=== PATIENT | female | born 1970 | race Caucasian/White ===

== ENCOUNTER 2023-07-01 10:34 | Emergency (ER) | payer MEDICAID ==
--- NOTE | 2023-07-01 11:07 | ED ---
Upper Extremity HPI - General Chief Complaint: Extremity Injury, Upper Stated Complaint: Swollen finger Time Seen by Provider: 07/01/23 10:50 Source: patient, RN notes reviewed Mode of arrival: ambulatory Limitations: no limitations - History of Present Illness Initial Comments: This is a 53-year-old female presents emergency department chief complaint of right index finger swelling and pain. Dates that she was outside gardening yesterday when a piece of mulch positioned inside of her index finger. Digits that she was able to remove a piece of mulch. She states that she woke up this morning she had swelling and felt a "heartbeat "in her finger. She denies feelings of nausea, chills, body aches, fatigue. Unaware of when last tetanus vaccination was. - Related Data Previous Rx's Medication Instructions Recorded Cephalexin [Keflex] 500 mg PO Q6HR #40 cap 07/01/23 Allergies Allergy/AdvReac Type Severity Reaction Status Date / Time morphine Allergy Rash/Hives Verified 07/01/23 10:39 Review of Systems ROS Statement: Those systems with pertinent positive or pertinent negative responses have been documented in the HPI. ROS Other: All systems not noted in ROS Statement are negative. Past Medical History Past Medical History: No Reported History History of Any Multi-Drug Resistant Organisms: None Reported Past Surgical History: Orthopedic Surgery Past Psychological History: No Psychological Hx Reported Smoking Status: Never smoker Past Alcohol Use History: Occasional Past Drug Use History: None Reported General Exam Limitations: no limitations General appearance: alert, in no apparent distress Head exam: Present: atraumatic, normocephalic, normal inspection Eye exam: Present: normal appearance, PERRL, EOMI. Absent: scleral icterus, conjunctival injection, periorbital swelling ENT exam: Present: normal exam, mucous membranes moist Neck exam: Present: normal inspection. Absent: tenderness, meningismus, lymphadenopathy Respiratory exam: Present: normal lung sounds bilaterally. Absent: respiratory distress, wheezes, rales, rhonchi, stridor Cardiovascular Exam: Present: regular rate, normal rhythm, normal heart sounds. Absent: systolic murmur, diastolic murmur, rubs, gallop, clicks GI/Abdominal exam: Present: soft, normal bowel sounds. Absent: distended, tenderness, guarding, rebound, rigid Right Hand Wrist exam: Present: tenderness, swelling, erythema, other (5 mm ulceration of the mid second phalynx with erythma spreading distally into the metacarpal phalangeal joint). Absent: full ROM (unable to complete full active flexion of second digit), abrasion, crepitus Vascular: Present: normal capillary refill. Absent: vascular compromise Back exam: Present: normal inspection Neurological exam: Present: alert, oriented X3, CN II-XII intact Psychiatric exam: Present: normal affect, normal mood Skin exam: Present: warm, dry, intact, normal color. Absent: rash Course Vital Signs 07/01/23 07/01/23 10:36 11:50 Temperature 98 F 98 F Pulse Rate 101 H 90 Respiratory 20 18 Rate Blood Pressure 128/83 127/79 O2 Sat by Pulse 98 98 Oximetry Medical Decision Making - Medical Decision Making Was pt. sent in by a medical professional or institution (, PA, ANIMAL LABORATORY TECHNICIAN, urgent care, hospital, or [facility]...) When possible be specific @ -No Did you speak to anyone other than the patient for history (EMS, parent, family, police, friend...)? What history was obtained from this source @ -No Did you review nursing and triage notes (agree or disagree)? Why? @ -I reviewed and agree with nursing and triage notes Were old charts reviewed (outside hosp., previous admission, EMS record, old EKG, old radiological studies, urgent care reports/EKG's, [facility] records)? Report findings @ -No old charts were reviewed Differential Diagnosis (chest pain, altered mental status, abdominal pain women, abdominal pain men, vaginal bleeding, weakness, fever, dyspnea, syncope, headache, dizziness, GI bleed, back pain, seizure, CVA, palpatations, mental health, musculoskeletal)? @ -Soft tissue foreign body, cellulitis, this list is not all inclusive EKG interpreted by me (3pts min.). @ -none X-rays interpreted by me (1pt min.). @ -xray of the right finger Soft tissue swelling with no acute osseous abnormality, no radiopaque foreign bodies evident CT interpreted by me (1pt min.). @ -None done U/S interpreted by me (1pt. min.). @ -None done What testing was considered but not performed or refused? (CT, X-rays, U/S, labs)? Why? @ -None What meds were considered but not given or refused? Why? @ -None Did you discuss the management of the patient with other professionals (professionals i.e. , PA, ANIMAL LABORATORY TECHNICIAN, lab, RT, psych nurse, social work professor, white washer piler, teacher, property and supply officer, case packer and sealer)? Give summary @ -No Was smoking cessation discussed for >3mins.? @ -No Was critical care preformed (if so, how long)? @ -No Were there social determinants of health that impacted care today? How? (Homelessness, low income, unemployed, alcoholism, drug addiction, transportation, low edu. Level, literacy, decrease access to med. care, alf, rehab)? @ -No Was there de-escalation of care discussed even if they declined (Discuss DNR or withdrawal of care, Hospice)? DNR status @ -No What co-morbidities impacted this encounter? (DM, HTN, Smoking, COPD, CAD, Cancer, CVA, ARF, Chemo, Hep., AIDS, mental health diagnosis, sleep apnea, morbid obesity)? @ -None Was patient admitted / discharged? Hospital course, mention meds given and route, prescriptions, significant lab abnormalities, going to OR and other pertinent info. @ -Discharge. 53-year-old female chief complaint of potential foreign body in her right finger in addition to erythema and edema. On examination the patient's right second digit is found to be erythematous and she is unable to complete full flexion of the finger due to swelling and pain. There is no overt flexion of the finger no pain along the tendon therefore no concern for flexor tenosynovitis. X-ray nonconcerning for foreign body within the soft tissue. Area was cleansed with chlorhexidine and wrapped. Patient discharged home with oral antibiotics. Strict return parameters discussed with the patient. She is in agreement with the plan. Recommend follow-up with primary care provider next week for further evaluation of wound. Case was discussed with Dr. Rivera Undiagnosed new problem with uncertain prognosis? @ -No Drug Therapy requiring intensive monitoring for toxicity (Heparin, Nitro, Insulin, Cardizem)? @ -No Were any procedures done? @ -No Diagnosis/symptom? @ -Cellulitis, history of foreign body in soft tissue Acute, or Chronic, or Acute on Chronic? @ -acute Uncomplicated (without systemic symptoms) or Complicated (systemic symptoms)? @ -uncmplicated Side effects of treatment? @ -No Exacerbation, Progression, or Severe Exacerbation? @ -No Poses a threat to life or bodily function? How? (Chest pain, [place], [place], pneumonia, PE, COPD, DKA, ARF, appy, cholecystitis, CVA, Diverticulitis, Homicidal, Suicidal, threat to staff... and all critical care pts) @ -No Disposition Clinical Impression: Cellulitis of finger of right hand Narrative: Please return to the Emergency Department if symptoms worsen or any other concerns. Monitor for signs of: Finger held in slight flexion, swelling of the right second digit and tenderness along the palmar surface of the second digit and severe pain with movement of the digit. Complete full course of antibiotics. Disposition: HOME SELF-CARE Condition: Good Instructions (If sedation given, give patient instructions): Cellulitis (ED) Prescriptions: Cephalexin [Keflex] 500 mg PO Q6HR #40 cap Is patient prescribed a controlled substance at d/c from ED?: No Referrals: Hanh Ceron MD [Primary Care Provider] - 1-2 days Time of Disposition: 11:42
[2023-07-01 11:08] VITALS: TEMP 98
[2023-07-01] MEDS: LIDOCAINE 1% INJ 10MG/ML (20 ML MDV) SQ ONE (11:08)
[2023-07-01] MEDS: DIPH,PERTUS(ACELL)TETVAC-LF 0.5 ML VIAL IM ONE (11:25)
--- NOTE | 2023-07-01 11:27 | XR ---
EXAMINATION TYPE: XR finger RT DATE OF EXAM: 07/01/2023 COMPARISON: None HISTORY: Pain and swelling TECHNIQUE: Three-view right index finger FINDINGS: No acute fracture or dislocation is evident. Diffuse mild soft tissue swelling appears to b e present. No radiopaque foreign bodies are evident. Joint spaces are preserved. Follow up exams can be performed 7-10 days from acute trauma for continued pain. IMPRESSION: 1. Soft tissue swelling. 2. No acute osseous abnormality.
[2023-07-01 11:53] VITALS: BP 127/79; PULSE 90; RESP 18
== END 2023-07-01 12:00 | disposition home or self-care (01) ==
LOC: EC 10:34
DX: L03.011 Cellulitis of right finger (principal); Z88.5 Allergy status to narcotic agent; Z23 Encounter for immunization
CPT/HCPCS: 90471; 90715; 99283

== ENCOUNTER 2023-07-02 08:36 | Observation (INO) | payer MEDICAID ==
[2023-07-02] MEDS ORDERED: VANCOMYCIN IV PER PHARMACY 1 EACH MISC MISCELLANE PRN (09:10)
--- NOTE | 2023-07-02 09:10 | ED ---
Upper Extremity HPI - General Chief Complaint: Extremity Injury, Upper Stated Complaint: R Finger Swelling Time Seen by Provider: 07/02/23 08:40 Source: patient Mode of arrival: ambulatory Limitations: no limitations - History of Present Illness Initial Comments: 53-year-old female who presents emergency department with infection of the right index finger. States that she was working in the garden on . She was wearing gloves but still accidentally got a piece of splinter in her finger. It was from the mulch that she was working with. States she was able to soak her finger and get the splinter out yesterday morning. She came into the emergency department where an x-ray was performed and patient was initiated on Keflex. Presents today that she woke up with a very swollen digit that is now starting to have hemorrhagic blisters. She is right-hand dominant. States that the pain is tracking up to her hand and has tenderness in her palm. She denies any fevers. No other alleviating, precipitating or modifying factors - Related Data Home Medications Medication Instructions Recorded Confirmed ALPRAZolam [Xanax] 0.5 - 1 mg PO HS PRN 07/02/23 07/02/23 Acetaminophen Tab [Tylenol Tab] 500 - 1,000 mg PO Q6HR PRN 07/02/23 07/02/23 Doxylamine Succinate [Unisom] 25 mg PO HS PRN 07/02/23 07/02/23 FLUoxetine HCL [PROzac] 10 mg PO DAILY 07/02/23 07/02/23 Vitamin B-12 (Unknown Strength) 1 dose PO DAILY 07/02/23 07/02/23 Gummies Vitamin C (Unknown Strength) 1 dose PO DAILY 07/02/23 07/02/23 Gummies Previous Rx's Medication Instructions Recorded Cephalexin [Keflex] 500 mg PO Q6HR #40 cap 07/01/23 Allergies Allergy/AdvReac Type Severity Reaction Status Date / Time morphine Allergy Rash/Hives Verified 07/02/23 10:20 Review of Systems ROS Statement: Those systems with pertinent positive or pertinent negative responses have been documented in the HPI. ROS Other: All systems not noted in ROS Statement are negative. Past Medical History Past Medical History: No Reported History History of Any Multi-Drug Resistant Organisms: None Reported Past Surgical History: Orthopedic Surgery Past Psychological History: No Psychological Hx Reported Smoking Status: Never smoker Past Alcohol Use History: Occasional Past Drug Use History: None Reported General Exam Limitations: no limitations General appearance: alert, in no apparent distress Head exam: Present: atraumatic, normocephalic, normal inspection Eye exam: Present: normal appearance, PERRL, EOMI. Absent: scleral icterus, conjunctival injection, periorbital swelling ENT exam: Present: normal exam, mucous membranes moist Neck exam: Present: normal inspection. Absent: tenderness, meningismus, lymphadenopathy Respiratory exam: Present: normal lung sounds bilaterally. Absent: respiratory distress, wheezes, rales, rhonchi, stridor Cardiovascular Exam: Present: regular rate, normal rhythm, normal heart sounds. Absent: systolic murmur, diastolic murmur, rubs, gallop, clicks GI/Abdominal exam: Present: soft, normal bowel sounds. Absent: distended, tenderness, guarding, rebound, rigid Extremities exam: Present: tenderness (With extension of the right index finger. Finger is held in flexion. Full circumferential swelling. Hemorrhagic blisters. Tenderness along the flexor tendon. Erythematous streaking to the hand), normal capillary refill. Absent: pedal edema, joint swelling, calf tenderness Back exam: Present: normal inspection Neurological exam: Present: alert, oriented X3, CN II-XII intact Psychiatric exam: Present: normal affect, normal mood Skin exam: Present: warm, dry, intact, normal color. Absent: rash Course Vital Signs 07/02/23 07/02/23 08:39 10:54 Temperature 97.7 F Pulse Rate 100 86 Respiratory 20 18 Rate Blood Pressure 131/84 144/84 O2 Sat by Pulse 99 96 Oximetry Medical Decision Making - Medical Decision Making Was pt. sent in by a medical professional or institution (, PA, FINANCIAL SERVICES COUNSELOR, urgent care, hospital, or care home...) When possible be specific @ -No Did you speak to anyone other than the patient for history (EMS, parent, family, police, friend...)? What history was obtained from this source @ -No Did you review nursing and triage notes (agree or disagree)? Why? @ -I reviewed and agree with nursing and triage notes Were old charts reviewed (outside hosp., previous admission, EMS record, old EKG, old radiological studies, urgent care reports/EKG's, care home records)? Report findings @ -I reviewed the patient's ED visit from yesterday Differential Diagnosis (chest pain, altered mental status, abdominal pain women, abdominal pain men, vaginal bleeding, weakness, fever, dyspnea, syncope, headache, dizziness, GI bleed, back pain, seizure, CVA, palpatations, mental health, musculoskeletal)? @ -Cellulitis, abscess, flexor tenosynovitis EKG interpreted by me (3pts min.). @ -Not done X-rays interpreted by me (1pt min.). @ -None done CT interpreted by me (1pt min.). @ -None done U/S interpreted by me (1pt. min.). @ -None done What testing was considered but not performed or refused? (CT, X-rays, U/S, labs)? Why? @ -None What meds were considered but not given or refused? Why? @ -None Did you discuss the management of the patient with other professionals (professionals i.e. , PA, FINANCIAL SERVICES COUNSELOR, lab, RT, psych nurse, manager social media, senior attorney, teacher, business enterprise officer, case specialist)? Give summary @ -Spoke with Dr. Edwards for admission Was smoking cessation discussed for >3mins.? @ -No Was critical care preformed (if so, how long)? @ -No Were there social determinants of health that impacted care today? How? (Homelessness, low income, unemployed, alcoholism, drug addiction, transportation, low edu. Level, literacy, decrease access to med. care, alf, rehab)? @ -No Was there de-escalation of care discussed even if they declined (Discuss DNR or withdrawal of care, Hospice)? DNR status @ -No What co-morbidities impacted this encounter? (DM, HTN, Smoking, COPD, CAD, Cancer, CVA, ARF, Chemo, Hep., AIDS, mental health diagnosis, sleep apnea, morbid obesity)? @ -None Was patient admitted / discharged? Hospital course, mention meds given and route, prescriptions, significant lab abnormalities, going to OR and other pertinent info. @ -Upon arrival patient seen and evaluated in room 17. Thorough history and physical exam was performed. Patient has been taking antibiotics however digit is getting markedly worse. IV was established. Laboratory studies are conducted. Patient was initiated on Vanco, Unasyn and Flagyl. Recommended admission due to failed outpatient treatment with concern for flexor tenosynovitis. Spoke with Dr. Edwards. Dr. Christine on consult Undiagnosed new problem with uncertain prognosis? @ -No Drug Therapy requiring intensive monitoring for toxicity (Heparin, Nitro, Insulin, Cardizem)? @ -No Were any procedures done? @ -No Diagnosis/symptom? @ -Acute foreign body right index finger, acute flexor tenosynovitis Acute, or Chronic, or Acute on Chronic? @ -Acute Uncomplicated (without systemic symptoms) or Complicated (systemic symptoms)? @ -Complicated Side effects of treatment? @ -No Exacerbation, Progression, or Severe Exacerbation? @ -No Poses a threat to life or bodily function? How? (Chest pain, [place], [place], pneumonia, PE, COPD, DKA, ARF, appy, cholecystitis, CVA, Diverticulitis, Homicidal, Suicidal, threat to staff... and all critical care pts) @ -Yes as patient has possible deep space infection in her right index finger - Lab Data Result diagrams: 07/03/23 05:49 07/05/23 06:32 Lab Results 07/02/23 07/02/23 07/02/23 Range/Units 09:20 09:20 09:20 WBC 8.9 (3.8-10.6) k/uL RBC 4.40 (3.80-5.40) m/uL Hgb 13.2 (11.4-16.0) gm/dL Hct 40.6 (34.0-46.0) % MCV 92.5 (80.0-100.0) fL MCH 30.1 (25.0-35.0) pg MCHC 32.6 (31.0-37.0) g/dL RDW 12.3 (11.5-15.5) % Plt Count 305 (150-450) k/uL MPV 6.9 Neutrophils % 72 % Lymphocytes % 20 % Monocytes % 5 % Eosinophils % 1 % Basophils % 1 % Neutrophils # 6.4 (1.3-7.7) k/uL Lymphocytes # 1.8 (1.0-4.8) k/uL Monocytes # 0.5 (0-1.0) k/uL Eosinophils # 0.1 (0-0.7) k/uL Basophils # 0.1 (0-0.2) k/uL Sodium 140 (137-145) mmol/L Potassium 3.8 (3.5-5.1) mmol/L Chloride 107 (98-107) mmol/L Carbon Dioxide 28 (22-30) mmol/L Anion Gap 5 mmol/L BUN 13 (7-17) mg/dL Creatinine 0.46 L (0.52-1.04) mg/dL Est GFR (CKD-EPI)AfAm >90 (>60 ml/min/1.73 sqM) Est GFR (CKD-EPI)NonAf >90 (>60 ml/min/1.73 sqM) Glucose 86 (74-99) mg/dL Plasma Lactic Acid Kyle 1.1 (0.7-2.0) mmol/L Calcium 8.6 (8.4-10.2) mg/dL Total Bilirubin 0.6 (0.2-1.3) mg/dL AST 35 (14-36) U/L ALT 24 (4-34) U/L Alkaline Phosphatase 95 (38-126) U/L C-Reactive Protein 15.1 H (<1.0) mg/dL Total Protein 7.0 (6.3-8.2) g/dL Albumin 4.0 (3.5-5.0) g/dL Disposition Clinical Impression: Cellulitis of finger of right hand, Flexor tenosynovitis of finger Disposition: ADMITTED IP TO THIS [facility] Condition: Stable Is patient prescribed a controlled substance at d/c from ED?: No Time of Disposition: 10:08 Decision to Admit Reason: Admit from EC Decision Date: 07/02/23 Decision Time: 10:08
[2023-07-02] MEDS: AMPICILLIN-SULBACTAM 3 GM in SODIUM CHLORIDE 0.9% 100 ML IVPB STA (09:47)
[2023-07-02 09:52] LABS: Basophils # (A) 0.1 k/uL (0-0.2); Basophils % (A) 1 %; Eosinophils # (A) 0.1 k/uL (0-0.7); Eosinophils % (A) 1 %; HCT 40.6 % (34.0-46.0); HGB 13.2 gm/dL (11.4-16.0); Lymphocytes # (A) 1.8 k/uL (1.0-4.8); Lymphocytes % (A) 20 %; MCH 30.1 pg (25.0-35.0); MCHC 32.6 g/dL (31.0-37.0); MCV 92.5 fL (80.0-100.0); Mean Platelet Volume 6.9; Monocytes # (A) 0.5 k/uL (0-1.0); Monocytes % (A) 5 %; Neutrophils # (A) 6.4 k/uL (1.3-7.7); Neutrophils % (A) 72 %; Platelet Count 305 k/uL (150-450); RDW 12.3 % (11.5-15.5); WBC 8.9 k/uL (3.8-10.6)
[2023-07-02] MEDS ORDERED: VANCOMYCIN 1,500 MG in SODIUM CHLORIDE 0.9% 250 ML IVPB ONE (10:00)
[2023-07-02 10:05] LABS: ALT 24 U/L (4-34); AST 35 U/L (14-36); African American GFR (CKD) >90 (>60 ml/min/1.73 sqM); Alkaline Phosphatase 95 U/L (38-126); Anion Gap 5 mmol/L; Blood Urea Nitrogen 13 mg/dL (7-17); Calcium 8.6 mg/dL (8.4-10.2); Carbon Dioxide 28 mmol/L (22-30); Chloride 107 mmol/L (98-107); Glucose 86 mg/dL (74-99); Non-African American GFR(CKD) >90 (>60 ml/min/1.73 sqM); Potassium 3.8 mmol/L (3.5-5.1); Sodium 140 mmol/L (137-145); Total Bilirubin 0.6 mg/dL (0.2-1.3)
[2023-07-02] MEDS: KETOROLAC 15 MG/ML 1 ML VIAL IVP STA (10:07)
[2023-07-02] MEDS ORDERED: NALOXONE 0.4 MG/ML 1 ML VIAL IV PRN (10:12)
[2023-07-02 10:16] LABS: C Reactive Protein 15.1 mg/dL (<1.0)
[2023-07-02] MEDS: VANCOMYCIN 1,500 MG in SODIUM CHLORIDE 0.9% 500 ML 500 ML IVPB ONE (10:29)
[2023-07-02] MEDS: HYDROmorphone 0.5 MG/0.5 ML SYRINGE IVP PRN (10:50)
[2023-07-02] MEDS: metroNIDAZOLE-NS PMX 500 MG in SALINE 1 100ML.BAG IVPB STA (11:00)
[2023-07-02] MEDS: SODIUM CHLORIDE 0.9% 1,000 ML IV SCH (12:15)
--- NOTE | 2023-07-02 15:35 | P.HPIM ---
History of Present Illness H&P Date: 07/02/23 Chief Complaint: Infected finger 53-year-old woman with a medical history of mood disorder on fluoxetine presented for finger injury. Patient was mulching her garden when she had a splinter injury of her right forefinger. This happened 48 hours ago. Yesterday, she was seen and started on cephalexin as an outpatient, however, her pain, swelling, redness rapidly increased and spread to her proximal hand, prompting concern and evaluation in the emergency room. Patient denies fevers, chills, nausea, vomiting, sweats, shakes, rigors. Patient does report she has sensation in the hand including the finger that is affected, though it feels a little bit more numb than normal. In the emergency room, patient was afebrile, 135/76, heart rate 63, 98% on room air. CBC is unremarkable. Basic metabolic panel is unremarkable. Liver function tests are unremarkable. CRP is elevated at 15.1. Patient did have a finger x-ray which demonstrated soft tissue swelling, but no osseous abnormalities. Case was discussed with the emergency room divider and decision was made to admit the patient to the hospital for flexor tenosynovitis. All Systems reviewed and pertinent positives and negatives noted in HPI, all other symptoms are negative Gen: In NAD, non-toxic HEENT: normocephalic, atraumatic, hearing acuity is intant, mucous membranes moist CVS: perfusing all extremities well, no pitting edema, Respiratory: symmetric chest expansion, no accessory muscle use, GI: soft, NTTP, ND, : no suprapubic tenderness, no CVA tenderness MSK/Derm: First 4 fingers on the right is red, erythematous, nonpitting edema, capillary refill is present but delayed, sensation to touch (light) is intact in the finger Neuro: CN II-XII intact, no motor weakness, Psych: cooperative, euthymic mood, judgment and insight is intact Labs and imaging as above Assessment/plan: Flexor tenosynovitis -Patient is admitted as an observation patient -Orthopedic surgery consult -Initiate patient on vancomycin, Unasyn, metronidazole -Pain control: Tylenol, Toradol as needed, Dilaudid as needed -Nausea control: Zofran as needed -Repeat CBC, ESR, CRP in the morning Mood disorder -Continue home fluoxetine Patient is full code Past Medical History Past Medical History: No Reported History History of Any Multi-Drug Resistant Organisms: None Reported Past Surgical History: Back Surgery, Hernia Repair, Hysterectomy, Orthopedic Surgery Additional Past Surgical History / Comment(s): right knee, right rotator cuff, laminectomy, ventral hernia, hysterectomy Past Psychological History: No Psychological Hx Reported Smoking Status: Never smoker Past Alcohol Use History: Occasional Past Drug Use History: None Reported Medications and Allergies Home Medications Medication Instructions Recorded Confirmed Type Cephalexin [Keflex] 500 mg PO Q6HR #40 cap 07/01/23 07/02/23 Rx ALPRAZolam [Xanax] 0.5 - 1 mg PO HS PRN 07/02/23 07/02/23 History Acetaminophen Tab [Tylenol Tab] 500 - 1,000 mg PO Q6HR PRN 07/02/23 07/02/23 Hi story Doxylamine Succinate [Unisom] 25 mg PO HS PRN 07/02/23 07/02/23 History FLUoxetine HCL [PROzac] 10 mg PO DAILY 07/02/23 07/02/23 History Vitamin B-12 (Unknown Strength) 1 dose PO DAILY 07/02/23 07/02/23 History Gummies Vitamin C (Unknown Strength) 1 dose PO DAILY 07/02/23 07/02/23 History Gummies Allergies Allergy/AdvReac Type Severity Reaction Status Date / Time morphine Allergy Rash/Hives Verified 07/02/23 10:20 Physical Exam Osteopathic Statement: *. No significant issues noted on an osteopathic structural exam other than those noted in the History and Physical/Consult. Vitals: Vital Signs Temp Pulse Pulse Resp BP BP Pulse Ox 07/02/23 14:47 97.7 F 63 16 135/76 98 07/02/23 11:49 97.8 F 67 16 137/83 98 07/02/23 10:54 86 18 144/84 96 07/02/23 08:39 97.7 F 100 20 131/84 99 Intake and Output 07/02/23 07/02/23 07/02/23 06:59 14:59 22:59 Other: Voiding Method Toilet Weight 77.111 kg Results CBC & Chem 7: 07/02/23 09:20 07/02/23 09:20 Labs: Abnormal Lab Results - Last 24 Hours (Table) 07/02/23 Range/Units 09:20 Creatinine 0.46 L (0.52-1.04) mg/dL C-Reactive Protein 15.1 H (<1.0) mg/dL Thrombosis Risk Factor Assmnt - Choose All That Apply Any of the Below Risk Factors Present?: Yes Each Factor Represents 1 point: Age 41-60 years, Obesity (BMI >25) Other Risk Factors: No Thrombosis Risk Factor Assessment Total Risk Factor Score: 2 Thrombosis Risk Factor Assessment Level: Low Risk
--- NOTE | 2023-07-02 15:54 | P.CNOR ---
History of Present Illness - [facility] Consult date: 07/02/23 History of present illness: the patient is a very pleasant relatively healthy right-hand dominant female who is admitted to internal medicine with an infection in her right index finger and concern for purulent flexor tenosynovitis. According to the patient she was working in the yard 2 days ago when a splinter went into her right index finger. She thinks she was able to pull most of it out. This morning she awoke and her finger was diffusely swollen and painful. She presented to the emergency department where there was concern for purulent flexor tenosynovitis. At the time of my evaluation the patient is complaining of isolated pain in her right index finger and in the webspace between the index and middle finger. She den ies feeling systemically ill and does not have fevers or chills. Past Medical History Past Medical History: No Reported History History of Any Multi-Drug Resistant Organisms: None Reported Past Surgical History: Back Surgery, Hernia Repair, Hysterectomy, Orthopedic Surgery Additional Past Surgical History / Comment(s): right knee, right rotator cuff, laminectomy, ventral hernia, hysterectomy Past Psychological History: No Psychological Hx Reported Smoking Status: Never smoker Past Alcohol Use History: Occasional Past Drug Use History: None Reported Medications and Allergies Home Medications Medication Instructions Recorded Confirmed Type Cephalexin [Keflex] 500 mg PO Q6HR #40 cap 07/01/23 07/02/23 Rx ALPRAZolam [Xanax] 0.5 - 1 mg PO HS PRN 07/02/23 07/02/23 History Acetaminophen Tab [Tylenol Tab] 500 - 1,000 mg PO Q6HR PRN 07/02/23 07/02/23 History Doxylamine Succinate [Unisom] 25 mg PO HS PRN 07/02/23 07/02/23 History FLUoxetine HCL [PROzac] 10 mg PO DAILY 07/02/23 07/02/23 History Vitamin B-12 (Unknown Strength) 1 dose PO DAILY 07/02/23 07/02/23 History Gummies Vitamin C (Unknown Strength) 1 dose PO DAILY 07/02/23 07/02/23 History Gummies Allergies Allergy/AdvReac Type Severity Reaction Status Date / Time morphine Allergy Rash/Hives Verified 07/02/23 10:20 Physical Examination The patient is resting comfortably in her bed. She is alert and able to answer questions. She does not appear toxic. A focused exam of the right upper extremity was conducted. On inspection the right index finger is diffusely swollen, erythematous and with multiple hemorrhagic blisters. There is a small puncture wound over the volar aspect of the middle phalanx with a small amount of purulent drainage. There is exquisite tenderness along the volar aspect of the index finger. There is pain with any attempted passive extension. There is minimal pain with passive range of motion of the index MP joint. There is mild erythema over the dorsal aspect of the index MP joint. There is no tenderness over the thenar eminence or full her forearm. The tip of the index finger is warm and well perfused with brisk capillary refill. Results - Labs Labs: Abnormal Lab Results - Last 24 Hours (Table) 07/02/23 Range/Units 09:20 Creatinine 0.46 L (0.52-1.04) mg/dL C-Reactive Protein 15.1 H (<1.0) mg/dL H & H 07/02/23 Range/Units 09:20 Hgb 13.2 (11.4-16.0) gm/dL Hct 40.6 (34.0-46.0) % Result Diagrams: 07/02/23 09:20 07/02/23 09:20 Assessment and Plan Assessment: Right finger cellulitis with possible retained foreign body and purulent flexor tenosynovitis Plan: Based on the patient's clinical exam I have concern that there is a deep space infection, particularly purulent flexor tenosynovitis. My recommendation was to proceed with a formal I&D in the operating room to decompress any deep space infection, evaluate for any retained foreign body, and obtained deep cultures. We'll plan on surgery tomorrow morning. Infectious disease has been consulted for antibiotic recommendations. Following discharge the patient will likely follow up in the office with my hand partner Dr. Shay for continued care.
[2023-07-02] MEDS: VANCOMYCIN 1,250 MG in SODIUM CHLORIDE 0.9% 250 ML IVPB SCH (18:29)
[2023-07-03] MEDS: ONDANSETRON 4 MG/2 ML VIAL IVP PRN (07:50)
[2023-07-03] MEDS: IV FLUID CONTINUATION 1,000 ML IV ONE (08:02)
[2023-07-03] MEDS: SCOPOLAMINE 1 MG/72 HR PATCH TRANSDERM ONE (08:06)
[2023-07-03] MEDS: FAMOTIDINE 20 MG/2 ML VIAL IVP ONE (08:06)
[2023-07-03] MEDS: DEXAMETHASONE SOD PHOSPHATE 4 MG/ML 1 ML VIAL IVP ONE (08:06)
[2023-07-03] MEDS ORDERED: fentaNYL (PF) 50 MCG/ML 2 ML AMP ONE (08:11)
[2023-07-03] MEDS ORDERED: LIDOCAINE 1% INJ 10MG/ML (20 ML MDV) ONE (08:11)
[2023-07-03] MEDS ORDERED: PROPOFOL 10 MG/ML 20 ML VIAL IV ONE (08:11)
[2023-07-03] MEDS ORDERED: MIDAZOLAM 2 MG/2 ML VIAL ONE (08:11)
[2023-07-03] MEDS: SODIUM CHLORIDE 0.9% 100 ML with ceFAZolin 2,000 MG IV ONE (08:30)
[2023-07-03] MEDS: BUPIVACAINE (PF) 0.5% 30 ML VIAL SQ ONE (08:36)
[2023-07-03] MEDS: KETOROLAC 15 MG/ML 1 ML VIAL IVP ONE (09:04)
[2023-07-03] MEDS: ACETAMINOPHEN IV (For NPO) 1,000 MG/100 ML VIAL IVPB ONE (09:04)
--- NOTE | 2023-07-03 09:11 | P.OP ---
Date of Procedure: 07/03/23 Preoperative Diagnosis: right index finger cellulitis and possible deep space infection versus purulent flexor tenosynovitis Postoperative Diagnosis: same Procedure(s) Performed: right index finger I&D ( excisional debridement using a scalpel of nonviable skin and subcutaneous tissue down to the index finger flexor tendon sheath) Anesthesia: HYACINTH Surgeon: Kobi Christine Estimated Blood Loss (ml): 25 IV fluids (ml): 500 Pathology: other (deep cultures) Condition: stable Disposition: PACU Indications for Procedure: the patient is a very pleasant previously healthy 53-year-old female who was doing gardening several days ago when a splinter went her right index finger. She tried to pull most of it out. Over the last several days she's had increasing pain, fusiform swelling, redness, and hemorrhagic blisters over the index finger. Due to increasing pain and the appearance of her finger she presented to the hospital. She was admitted to internal medicine and orthopedics was consulted. I met with the patient yesterday. On inspection of the right index finger there is fusiform swelling, angry-appearing erythema and hemorrhagic blisters, tenderness along the flexor tendon sheath, and exquisite pain with any movement including passive extension of the index finger. Due to the clinical appearance of her finger and failure to improve over the last 24 hours on antibiotics my recommendation is to proceed with a formal I&D and exploration in the operating room. We discussed the potential risks and complications of this at length including but certainly not limited to risks from anesthesia, continued or worsened infection, damage to local blood vessels or nerves, delayed wound healing, damage to the underlying flexor extensor tendons, need for further surgery, stiffness, and inability to regain preinjury level of function, and possibly loss of finger. The patient voiced understanding of these complications will also acknowledging other less common complications are possible. She provided both verbal and written consent to go forward with surgery. Description of Procedure: The patient was identified in preoperative holding and the correct right index finger was marked my initials. I reviewed the consent form with the patient and all of her questions were answered. The patient was then brought back to the operating room by anesthesia. She was given a general anesthetic while on her gurney. A tourniquet was applied to the proximal aspect of the right arm but was not used during the procedure. The gurney was rotated 90 from the anesthesia and a hand table was placed under the arm. A nonsterile 10:15 drape was applied just above the elbow. The right arm was then prepped and draped in the standard sterile fashion. Prior to starting surgery a timeout was performed identifying the correct patient, operative extremity, and procedure. I began by outlining a zigzag Betty-type incision over the volar aspect of the right index finger. Skin incision was made with a scalpel and dissection was carried down through the subcutaneous tissue to the flexor tendon sheath with tenotomy scissors. There is a small amount of murky fluid but no gross purulence. A swab was taken at the level of the flexor tendon. The hemorrhagic blisters were unroofed. There did not appear to be any foreign bodies within the wound. An excisional debridement was performed using a scalpel of all no nviable skin and subcutaneous tissue down to the level of the flexor tendon. The wound was then thoroughly irrigated using 1 L of sterile saline and cystoscopy tubing. The incision was then loosely reapproximated with 3-0 nylon sutures. At the conclusion of the procedure the tip of the finger was well perfused with brisk refill. A sterile dressing was applied loosely over the finger. The patient was then awoken from her anesthetic and transferred to the recovery room having tolerated the procedure well. Plan: The patient is going to receive antibiotics from infectious disease. We will leave her dressing on until tomorrow and then I will transfer her care to my hand partner Dr. Shay for continued management.
[2023-07-03 09:26] LABS: Basophils # (A) 0.05 X 10*3/uL (0.00-0.10); Basophils % (A) 0.6 %; Eosinophils # (A) 0.07 X 10*3/uL (0.04-0.35); Eosinophils % (A) 0.8 %; HCT 38.4 % (37.2-46.3); HGB 12.6 g/dL (12.0-15.0); Lymphocytes # (A) 2.23 X 10*3/uL (0.90-5.00); Lymphocytes % (A) 25.2 %; MCH 30.5 pg (27.0-32.0); MCHC 32.8 g/dL (32.0-37.0); Mean Platelet Volume 9.5 FL (9.5-12.2); Monocytes # (A) 0.54 X 10*3/uL (0.20-1.00); Monocytes % (A) 6.1 %; NRBC Per 100 WBC 0 X 10*3/uL (0.00-0.01); Neutrophils # (A) 5.94 X 10*3/uL (1.80-7.70); Platelet Count 286 X 10*3/uL (140-440); RBC 4.13 X 10*6/uL (4.10-5.20); RDW 12.1 % (11.5-14.5); WBC 8.86 X 10*3/uL (4.50-10.00)
[2023-07-03 09:42] LABS: Blood Urea Nitrogen 8.6 mg/dL (9.0-27.0); Calcium 8.8 mg/dL (8.7-10.3); Carbon Dioxide 22.2 mmol/L (21.6-31.8); Chloride 106 mmol/L (96-109); Glucose 87 mg/dL (70-110); Potassium 4.4 mmol/L (3.5-5.5); Sodium 140 mmol/L (135-145)
[2023-07-03] MEDS: LACTATED RINGERS 1,000 ML IV SCH (10:10)
--- NOTE | 2023-07-03 11:57 | P.PN ---
Subjective Progress Note Date: 07/03/23 No new complaints. Doing well s/p OR. Gen: In NAD, non-toxic HEENT: normocephalic, atraumatic, hearing acuity is intant, mucous membranes moist CVS: perfusing all extremities well, no pitting edema, Respiratory: symmetric chest expansion, no accessory muscle use, GI: soft, NTTP, ND, : no suprapubic tenderness, no CVA tenderness MSK/Derm: First 4 fingers on the right is red, erythematous, nonpitting edema, capillary refill is present but delayed, sensation to touch (light) is intact in the finger Neuro: CN II-XII intact, no motor weakness, Psych: cooperative, euthymic mood, judgment and insight is intact Hospital Course: 53-year-old woman with a medical history of mood disorder on fluoxetine presented for finger injury. In the emergency room, patient was afebrile, 135/76, heart rate 63, 98% on room air. CBC is unremarkable. Basic metabolic panel is unremarkable. Liver function tests are unremarkable. CRP is elevated at 15.1. Patient did have a finger x-ray which demonstrated soft tissue swelling, but no osseous abnormalities. Case was discussed with the emergency room divider and decision was made to admit the patient to the hospital for flexor tenosynovitis. Assessment/plan: Flexor tenosynovitis -Patient is admitted as an observation patient -Orthopedic surgery consult -OR cultures pending -Initiate patient on vancomycin, Unasyn, metronidazole -Pain control: Tylenol, Toradol as needed, Dilaudid as needed -Nausea control: Zofran as needed Mood disorder -Continue home fluoxetine Patient is full code Objective - Vital Signs Vital signs: Vital Signs Temp 97.8 F 07/03/23 08:59 Pulse 72 07/03/23 09:44 Resp 14 07/03/23 09:44 BP 138/56 07/03/23 09:44 Pulse Ox 95 07/03/23 09:44 FiO2 Intake & Output 07/02/23 07/03/23 07/03/23 18:59 06:59 18:59 Intake Total 118 550 Output Total 25 Balance 118 525 Weight 77.111 kg 77.111 kg Intake: IV 550 Oral 118 Output: Estimated Blood Loss 25 Other: Voiding Method Toilet Toilet Toilet # Voids 1 1 - Labs CBC & Chem 7: 07/03/23 05:49 07/03/23 05:49 Labs: Abnormal Lab Results - Last 24 Hours (Table) 07/03/23 Range/Units 05:49 BUN 8.6 L (9.0-27.0) mg/dL Creatinine 0.5 L (0.6-1.5) mg/dL
[2023-07-03] MEDS: HYDROcodone/APAP 5-325MG 1 EACH TAB PO PRN (17:52)
[2023-07-03] MEDS: VANCOMYCIN TROUGH DUE 1 EACH MISC MISCELLANE ONE (18:03)
[2023-07-03] MEDS: KETOROLAC 15 MG/ML 1 ML VIAL IVP PRN (20:19)
[2023-07-04] MEDS ORDERED: fentaNYL (PF) 50 MCG/ML 2 ML AMP IVP PRN (07:00)
--- NOTE | 2023-07-04 09:17 | P.PN ---
Subjective Progress Note Date: 07/04/23 Principal diagnosis: Status post right index finger I&D This is a 53 year-old female post right index finger I&D. This is post-op day 1. The patient was evaluated at the bedside today. The patient denies nausea, vomiting, abdominal pain, chest pain, or shortness of breath this morning. She states her pain is controlled at this time and the finger feels much better after surgery. The patient states that she spoke with her sister who is a wound care nurse and she thought maybe the patient was bitten by a brown recluse spider. Objective - Vital Signs Vital signs: Vital Signs Temp 98.3 F 07/04/23 07:00 Pulse 75 07/04/23 07:00 Resp 16 07/04/23 07:00 BP 119/62 07/04/23 07:00 Pulse Ox 98 07/04/23 07:00 FiO2 Intake & Output 07/03/23 07/04/23 07/04/23 18:59 06:59 18:59 Intake Total 668 118 Output Total 25 Balance 643 118 Weight 77.111 kg Intake: IV 550 Oral 118 118 Output: Estimated Blood Loss 25 Other: Voiding Method Toilet Toilet # Voids 2 1 - Exam The patient is a 53-year-old female in no acute distress. She is alert and oriented 3. The operative dressing was removed. The incision is stable. Sutures are in place. Exam demonstrates normal wound healing with no signs of worsening infection. there is an open area to the dorsal radial aspect. Swelling is also as expected and is not excessive. Neurovascular exam is normal. - Labs CBC & Chem 7: 07/03/23 05:49 07/03/23 05:49 Labs: Abnormal Lab Results - Last 24 Hours (Table) 07/03/23 Range/Units 05:49 BUN 8.6 L (9.0-27.0) mg/dL Creatinine 0.5 L (0.6-1.5) mg/dL Microbiology - Last 24 Hours (Table) 07/03/23 08:40 Gram Stain - Preliminary Finger - Right Second Wound Culture - Preliminary 07/02/23 09:35 Blood Culture - Preliminary Blood 07/02/23 09:20 Blood Culture - Preliminary Blood Assessment and Plan (1) Right hand pain Current Visit: Yes Status: Acute Code(s): M79.641 - PAIN IN RIGHT HAND SNOMED Code(s): 05026307 (2) Cellulitis of finger of right hand Current Visit: Yes Status: Acute Code(s): L03.011 - CELLULITIS OF RIGHT FINGER SNOMED Code(s): 22243488 Plan: The clinical findings were discussed with the patient. The case was discussed with Dr. Christine and Dr. Shay. Clinically, the patient is improving. Dressing changed today. We will continue to change the dressings daily. Cultures pending. She will likely be discharged home on oral antibiotics in the next 1-2 days. We will continue to closely monitor the patient.
--- NOTE | 2023-07-04 16:12 | P.PN ---
Subjective Progress Note Date: 07/04/23 No new complaints. Doing well s/p OR, postop day 1 Gen: In NAD, non-toxic HEENT: normocephalic, atraumatic, hearing acuity is intant, mucous membranes moist CVS: perfusing all extremities well, no pitting edema, Respiratory: symmetric chest expansion, no accessory muscle use, GI: soft, NTTP, ND, : no suprapubic tenderness, no CVA tenderness MSK/Derm: First 4 fingers on the right is red, erythematous, nonpitting edema, capillary refill is present but delayed, sensation to touch (light) is intact in the finger Neuro: CN II-XII intact, no motor weakness, Psych: cooperative, euthymic mood, judgment and insight is intact Hospital Course: 53-year-old woman with a medical history of mood disorder on fluoxetine presented for finger injury. In the emergency room, patient was afebrile, 135/76, heart rate 63, 98% on room air. CBC is unremarkable. Basic metabolic panel is unremarkable. Liver function tests are unremarkable. CRP is elevated at 15.1. Patient did have a finger x-ray which demonstrated soft tissue swelling, but no osseous abnormalities. Case was discussed with the emergency room divider and decision was made to admit the patient to the hospital for flexor tenosynovitis. Assessment/plan: Flexor tenosynovitis -Patient is admitted as an observation patient -Orthopedic surgery consult -OR cultures pending, Gram stain is negative -Continue patient on vancomycin, Unasyn, metronidazole -Pain control: Tylenol, Toradol as needed, Dilaudid as needed -Nausea control: Zofran as needed Mood disorder -Continue home fluoxetine Patient is full code Objective - Vital Signs Vital signs: Vital Signs Temp 98.1 F 07/04/23 14:28 Pulse 81 07/04/23 14:28 Resp 16 07/04/23 14:28 BP 118/78 07/04/23 14:28 Pulse Ox 96 07/04/23 14:28 FiO2 Intake & Output 07/03/23 07/04/23 07/04/23 18:59 06:59 18:59 Intake Total 668 236 Output Total 25 Balance 643 236 Weight 77.111 kg Intake: IV 550 Oral 118 236 Output: Estimated Blood Loss 25 Other: Voiding Method Toilet Toilet # Voids 2 1 1 - Labs CBC & Chem 7: 07/03/23 05:49 07/03/23 05:49 Labs: Microbiology - Last 24 Hours (Table) 07/03/23 08:40 Gram Stain - Preliminary Finger - Right Second Wound Culture - Preliminary 07/02/23 09:35 Blood Culture - Preliminary Blood 07/02/23 09:20 Blood Culture - Preliminary Blood
[2023-07-05 07:16] LABS: African American GFR (CKD) >90 (>60 ml/min/1.73 sqM); Non-African American GFR(CKD) >90 (>60 ml/min/1.73 sqM)
[2023-07-05 09:00] VITALS: BP 120/67; PULSE 68; RESP 16; TEMP 98.1
--- NOTE | 2023-07-05 11:44 | P.PN ---
Subjective Progress Note Date: 07/05/23 53-year-old woman with a medical history of mood disorder on fluoxetine presented for finger injury. In the emergency room, patient was afebrile, 135/76, heart rate 63, 98% on room air. CBC is unremarkable. Basic metabolic panel is unremarkable. Liver function tests are unremarkable. CRP is elevated at 15.1. Patient did have a finger x-ray which demonstrated soft tissue swelling, but no osseous abnormalities. Decision was made to admit the patient to the hospital for flexor tenosynovitis. She underwent right index finger I&D with [facility]. Cultures are negative so far. Maintained on Vancomycin. 07/04 Patient was seen and examined. Swelling and redness of the finger improved. No complaints today. Wanting to go home. Cr 0.43. WCx. BCx. General: non toxic, no distress, appears at stated age Derm: warm, dry Head: atraumatic, normocephalic, symmetric Eyes: EOMI, no lid lag, anicteric sclera Mouth: no lip lesion, mucus membranes moist Cardiovascular: good distal perfusion in all 4 extremities Lungs: breathing comfortably, no accessory muscle use Ext: no gross muscle atrophy, no edema, no contractures Neuro: no focal neuro deficits Psych: Alert, oriented, appropriate affect Flexor tenosynovitis: Continue Vancomycin. Anticipate transition to Augmentin for discharge. Cultures negative so far. Discharge planning per [facility] recommendation. Mood disorder: Fluoxetine 10 mg PO QD. CODE STATUS: FULL CODE DVT Prophylaxis: SCD GI Prophylaxis: Designated medical POA if patient is not able to make medical decisions for themselves: I have reviewed the following senior solutions consultant notes: I have reviewed the results of the following tests: Renal function. Wound Cx. Blood Cx. I have ordered the following tests: Daily renal function monitoring while on Vancomycin. I have discussed the care of this patient with the following independent historian: I have independently interpreted the following test below: I have discussed the management of this patient with the following physician: Objective - Vital Signs Vital signs: Vital Signs Temp 98.1 F 07/05/23 07:20 Pulse 68 07/05/23 07:20 Resp 16 07/05/23 07:20 BP 120/67 07/05/23 07:20 Pulse Ox 96 07/05/23 07:20 FiO2 Intake & Output 07/04/23 07/05/23 07/05/23 18:59 06:59 18:59 Intake Total 236 355 Balance 236 355 Intake: Oral 236 355 Other: Voiding Method Toilet Toilet # Voids 1 2 - Labs CBC & Chem 7: 07/03/23 05:49 07/05/23 06:32 Labs: Abnormal Lab Results - Last 24 Hours (Table) 07/05/23 Range/Units 06:32 Creatinine 0.43 L (0.52-1.04) mg/dL Microbiology - Last 24 Hours (Table) 07/03/23 08:40 Gram Stain - Final Finger - Right Second Wound Culture - Final 07/02/23 09:35 Blood Culture - Preliminary Blood 07/02/23 09:20 Blood Culture - Preliminary Blood
--- NOTE | 2023-07-05 12:59 | P.DS ---
Providers Date of admission: 07/02/23 10:12 Expected date of discharge: 07/05/23 Attending physician: Jessica Edwards MD Consults: 07/02/23 10:12 Consult Physician Urgent Consulting Provider: Kobi Christine Consult Reason/Comments: flexortenosynovitis right index finger Do you want consulting provider notified?: Yes Primary care physician: [facility] Course: 53-year-old woman with a medical history of mood disorder on fluoxetine presented for finger injury. In the emergency room, patient was afebrile, 135/76, heart rate 63, 98% on room air. CBC is unremarkable. Basic metabolic panel is unremarkable. Liver function tests are unremarkable. CRP is elevated at 15.1. Patient did have a finger x-ray which demonstrated soft tissue swelling, but no osseous abnormalities. Decision was made to admit the patient to the hospital for flexor tenosynovitis. She underwent right index finger I&D with [facility]. Cultures are negative so far. Maintained on Vancomycin. 07/04 Patient was seen and examined. Swelling and redness of the finger improved. No complaints today. Wanting to go home. Cr 0.43. WCx. BCx. [facility] cleared the patient for discharge. Plans for Augmentin x 10 days and [place] PRN for pain control. Follow up with [facility] in clinic. General: non toxic, no distress, appears at stated age Derm: warm, dry Head: atraumatic, normocephalic, symmetric Eyes: EOMI, no lid lag, anicteric sclera Mouth: no lip lesion, mucus membranes moist Cardiovascular: good distal perfusion in all 4 extremities Lungs: breathing comfortably, no accessory muscle use Ext: no gross muscle atrophy, no edema, no contractures Neuro: no focal neuro deficits Psych: Alert, oriented, appropriate affect Discharge Diagnosis: Flexor tenosynovitis Mood disorder This complex discharge took 35 minutes to complete. Patient Condition at Discharge: Stable Plan - Discharge Summary Discharge Rx Participant: Yes New Discharge Prescriptions: New Ibuprofen 800 mg PO Q8H #90 tab HYDROcodone/APAP 5-325MG [[place] 5] 1 each PO Q4HR PRN #5 tab PRN Reason: Pain Amoxic-Pot Clav 875-125Mg [Augmentin 875-125] 1 tab PO Q12HR #20 tab Continue Acetaminophen Tab [Tylenol] 500 - 1,000 mg PO Q6HR PRN PRN Reason: Pain Or Fever > 100.5 Doxylamine Succinate [Unisom] 25 mg PO HS PRN PRN Reason: sleep ALPRAZolam [Xanax] 0.5 - 1 mg PO HS PRN PRN Reason: SLEEP/ANXIETY Vitamin C (Unknown Strength) Gummies 1 dose PO DAILY Vitamin B-12 (Unknown Strength) Gummies 1 dose PO DAILY FLUoxetine HCL [PROzac] 10 mg PO DAILY Discontinued Cephalexin [Keflex] 500 mg PO Q6HR #40 cap Discharge Medication List ALPRAZolam [Xanax] 0.5 - 1 mg PO HS PRN 07/02/23 [History] Acetaminophen Tab [Tylenol] 500 - 1,000 mg PO Q6HR PRN 07/02/23 [History] Doxylamine Succinate [Unisom] 25 mg PO HS PRN 07/02/23 [History] FLUoxetine HCL [PROzac] 10 mg PO DAILY 07/02/23 [History] Vitamin B-12 (Unknown Strength) Gummies 1 dose PO DAILY 07/02/23 [History] Vitamin C (Unknown Strength) Gummies 1 dose PO DAILY 07/02/23 [History] Amoxic-Pot Clav 875-125Mg [Augmentin 875-125] 1 tab PO Q12HR #20 tab 07/05/23 [Rx] HYDROcodone/APAP 5-325MG [[place] 5] 1 each PO Q4HR PRN #5 tab 07/05/23 [Rx] Ibuprofen 800 mg PO Q8H #90 tab 07/05/23 [Rx] Follow up Appointment(s)/Referral(s): Tiesha Shay DO [Doctor of Osteopathic Medicine] - 1 Week Hanh Ceron MD [Primary Care Provider] - 1-2 days Activity/Diet/Wound Care/Special Instructions: May cleanse wound with mild soap and water. Use vasoline to the blister area then cover with gauze wrap. Follow up with Dr. Shay in 1 week. Call [facility] with any questions or concerns, . Discharge Disposition: HOME SELF-CARE
--- NOTE | 2023-07-05 12:59 | P.PN ---
Subjective Progress Note Date: 07/05/23 Principal diagnosis: Status post right index finger I&D This is a 53 year-old female post right index finger I&D. This is post-op day 2. The patient was evaluated at the bedside today. The patient denies nausea, vomiting, abdominal pain, chest pain, or shortness of breath this morning. She states her pain is controlled at this time and the finger feels much better after surgery. The patient states that she spoke with her sister who is a wound care nurse and she thought maybe the patient was bitten by a brown recluse spider. Today, the patient's pain is controlled and the finger continues to feel better. There is a little more swelling in the hand and forearm today, possibly from her IV. No new complains today. Cultures are negative so far. Objective - Vital Signs Vital signs: Vital Signs Temp 98.1 F 07/05/23 07:20 Pulse 68 07/05/23 07:20 Resp 16 07/05/23 07:20 BP 120/67 07/05/23 07:20 Pulse Ox 96 07/05/23 07:20 FiO2 Intake & Output 07/04/23 07/05/23 07/05/23 18:59 06:59 18:59 Intake Total 236 355 Balance 236 355 Intake: Oral 236 355 Other: Voiding Method Toilet Toilet # Voids 1 2 - Exam The patient is a 53-year-old female in no acute distress. She is alert and oriented 3. Dressing was removed. The incision is stable. Sutures are in place. Exam demonstrates normal wound healing with no signs of worsening infection. there is an open area to the dorsal radial aspect. Swelling is also as expected and is not excessive. Neurovascular exam is normal. - Labs CBC & Chem 7: 07/03/23 05:49 07/05/23 06:32 Labs: Abnormal Lab Results - Last 24 Hours (Table) 07/05/23 Range/Units 06:32 Creatinine 0.43 L (0.52-1.04) mg/dL Microbiology - Last 24 Hours (Table) 07/03/23 08:40 Gram Stain - Final Finger - Right Second Wound Culture - Final 07/02/23 09:35 Blood Culture - Preliminary Blood 07/02/23 09:20 Blood Culture - Preliminary Blood Assessment and Plan (1) Right hand pain Current Visit: Yes Status: Acute Code(s): M79.641 - PAIN IN RIGHT HAND SNOMED Code(s): 37404048 (2) Cellulitis of finger of right hand Current Visit: Yes Status: Acute Code(s): L03.011 - CELLULITIS OF RIGHT FINGER SNOMED Code(s): 17661503 Plan: The clinical findings were discussed with the patient. The case was discussed with Dr. Christine and Dr. Shay. Clinically, the patient is improving. She may discharge home with close outpatient follow up in our office. She will be given Augmentin. The patient will follow up in [address] Shay. Wound care was discussed at length with the patient.
[2023-07-06] MEDS ORDERED: VANCOMYCIN TROUGH DUE 1 EACH MISC MISCELLANE ONE (09:00)
[2023-07-06] MEDS ORDERED: FLUoxetine HCL 10 MG CAP PO SCH (09:00)
== END 2023-07-05 14:43 | disposition home or self-care (01) ==
LOC: EC 08:36 → 6NMEDSUR 10:12
PROVIDERS: ADMIT Internal Medicine; ATTEND Internal Medicine
DX: M65.841 Other synovitis and tenosynovitis, right hand (principal); L03.011 Cellulitis of right finger; F39 Unspecified mood [affective] disorder; Z79.899 Other long term (current) drug therapy; Z88.5 Allergy status to narcotic agent
CPT/HCPCS: 96376 ×3; 96361 ×3; 96366 ×4; 96375 ×2; 96368; 96365; 96367; 99284; 36415; 80053; 80048; 82565; 83605; 85025 ×2; 80202; 86140; 87040; 87070; 87205; 87075; 11043; G0378 ×4; J2250; J3370 ×4; J1100; J2405; J0690; J2001; J3010; J3490; J0295; J0131; J1885 ×3; J2704; J1170 ×2; J1836; J0665

== ENCOUNTER → 2023-10-12 | Outpatient (CLI) | payer MEDICAID ==
--- NOTE | 2023-11-02 22:12 | MM ---
Reason for Exam: Screening (asymptomatic). Last mammogram was performed 1 year(s) and 7 month(s) ago. Patient History: Menarche at age 13. First Full-Term at age 24. Hysterectomy at age 40. Patient used Hormonal Contraceptives for 6 years. Risk Values: Sindi 5 year model risk: 1.2%. NCI Lifetime model risk: 8.5%. Prior Study Comparison: 03/08/2022 Bilateral MG 3D screening mammo w/cad, Unknown. Tissue Density: There are scattered areas of fibroglandular density. Findings: Nodularity 3:00 posterior left breast is more defined. Further evaluation is recommended. A few scattered benign oil cyst calcifications are unchanged. No other significant change. Overall Assessment: Incomplete: need additional imaging evaluation, BI-RAD 0 Management: Special View Mammogram of the left breast. Diagnostic Breast Ultrasound of the left breast. . [facility] will attempt to contact patient to return for supplemental views and ultrasound if indicated. Electronically signed and approved by: Viji Jiménez M.D. Radiologist
== END | disposition home or self-care (01) ==
LOC: RADMAMWWP 12:00
PROVIDERS: ATTEND Family Medicine
DX: Z12.31 Encounter for screening mammogram for malignant neoplasm of breast
CPT/HCPCS: 77063; 77067

== ENCOUNTER → 2023-11-07 | Outpatient (CLI) | payer MEDICAID ==
--- NOTE | 2023-11-07 13:45 | MM ---
Reason for Exam: Additional evaluation requested from abnormal screening. Last screening mammogram was performed less than 1 month ago. Patient History: Menarche at age 13. First Full-Term at age 24. Hysterectomy at age 40. Patient used Hormonal Contraceptives for 6 years. Risk Values: Sindi 5 year model risk: 1.2%. NCI Lifetime model risk: 8.5%. Prior Study Comparison: 03/08/2022 Bilateral MG 3D screening mammo w/cad, Unknown. 10/12/2023 Bilateral MG 3D screening mammo w/cad, [facility]. Tissue Density: Left: There are scattered areas of fibroglandular density. Findings: Analyzed By CAD. An approximate 1 cm nodular density upper outer quadrant left breast 10 cm from the nipple. Ultrasound is recommended for further evaluation. Overall Assessment: Incomplete: need additional imaging evaluation, BI-RAD 0 Management: Diagnostic Breast Ultrasound of the left breast. . Results were given to the patient verbally at the time of exam. Patient should continue monthly self-breast exams. A clinical breast exam by your physician is recommended on an annual basis. This exam should not preclude additional follow-up of suspicious palpable abnormalities. Note on Sindi scores and lifetime risk: 1. A Sindi score greater than 3% is considered moderate risk. If this is the case, consider specialist referral to assess eligibility for a risk reducing agent. 2. If overall lifetime risk for the development of breast cancer is 20% or higher, the patient may qualify for future screening with alternating mammogram and breast MRI. Electronically signed and approved by: Tommie Mcpherson M.D. Radiologis
--- NOTE | 2023-11-07 14:16 | USB ---
Reason for Exam: Additional evaluation requested from abnormal screening. Patient History: Menarche at age 13. First Full-Term at age 24. Hysterectomy at age 40. Patient used Hormonal Contraceptives for 6 years. Risk Values: Sindi 5 year model risk: 1.2%. NCI Lifetime model risk: 8.5%. Technique: Method: Targeted. Prior Study Comparison: 03/08/2022 Bilateral MG 3D screening mammo w/cad, Unknown. 10/12/2023 Bilateral MG 3D screening mammo w/cad, [facility]. Findings: The upper outer quadrant of the left breast, the axilla of the left breast and the retroareolar of the left breast were scanned. Probable septated cyst left 1:00 position 8 cm from the nipple measuring 1 cm. No definite solid mass lesions seen. Six-month follow-up ultrasound recommended. Overall Assessment: Probably benign, BI-RAD 3 Management: Diagnostic Breast Ultrasound of the left breast in 6 months. A clinical breast exam by your physician is recommended on an annual basis and results should be correlated with mammographic findings. This exam should not preclude additional follow-up of suspicious palpable abnormalities. Results were given to the patient verbally at the time of exam. Electronically signed and approved by: Tommie Mcpherson M.D. Radiologis
== END | disposition home or self-care (01) ==
LOC: RADMAMWWP 13:06
PROVIDERS: ATTEND Family Medicine
DX: R92.8 Other abnormal and inconclusive findings on diagnostic imaging of breast
CPT/HCPCS: 77061; 77065

== ENCOUNTER → 2023-11-24 | Outpatient (CLI) | payer MEDICAID ==
[2023-11-24 07:12] LABS: ALT 16 U/L (4-34); AST 21 U/L (14-36); African American GFR (CKD) >90 (>60 ml/min/1.73 sqM); Albumin 4.1 g/dL (3.5-5.0); Albumin/Globulin Ratio 1.5; Alkaline Phosphatase 76 U/L (38-126); Anion Gap 5 mmol/L; Blood Urea Nitrogen 17 mg/dL (7-17); Calcium 9.3 mg/dL (8.4-10.2); Carbon Dioxide 28 mmol/L (22-30); Chloride 106 mmol/L (98-107); Globulin 2.7 g/dL; Glucose 100 mg/dL (74-99); Non-African American GFR(CKD) >90 (>60 ml/min/1.73 sqM); Potassium 4.4 mmol/L (3.5-5.1); Sodium 139 mmol/L (137-145); Total Bilirubin 0.8 mg/dL (0.2-1.3); Total Protein 6.8 g/dL (6.3-8.2)
[2023-11-24 11:25] LABS: Chol/HDL Ratio 2.74 Ratio; LDL Cholesterol,Calculated 114.4 mg/dL (0.0-131.0); VLDL Calculation 13.92 mg/dL (5.00-40.00)
== END | disposition home or self-care (01) ==
LOC: RADXRMAIN 06:32
PROVIDERS: ATTEND Family Medicine
DX: Z00.00 Encounter for general adult medical examination without abnormal findings (principal)
CPT/HCPCS: 80053; 80061

== ENCOUNTER → 2024-04-30 | Outpatient (CLI) | payer OTHER ==
--- NOTE | 2024-04-30 12:40 | XR ---
EXAMINATION TYPE: XR knee complete LT DATE OF EXAM: 04/30/2024 12:34 PM COMPARISON: None. CLINICAL INDICATION: Female, 54 years old with history of S83.92XA SPRAIN OF UNSPECIFIED SITE OF LEFT KNEE,, pain TECHNIQUE: Three views of the left knee are obtained. FINDINGS: There is no acute fracture/dislocation evident in left knee. The tri-compartment joint sp aces appear within normal limits. The overlying soft tissue appears unremarkable. IMPRESSION: There is no acute fracture or dislocation in the left knee. [facility], , 04/30/2024 12:38 PM
== END | disposition home or self-care (01) ==
LOC: RADXRMAIN 12:19
PROVIDERS: ATTEND Emergency Medicine
DX: S83.92XA Sprain of unspecified site of left knee, initial encounter (principal); X58.XXXA Exposure to other specified factors, initial encounter

== ENCOUNTER → 2024-05-03 | Outpatient (CLI) | payer OTHER ==
--- NOTE | 2024-05-03 10:43 | MR ---
EXAMINATION TYPE: MR knee LT wo con DATE OF EXAM: 05/03/2024 10:28 AM COMPARISON: . CLINICAL INDICATION: Female, 54 years old with history of S83.92XA sprain L knee; [facility], Left medial kn ee pain, Work injury TECHNIQUE: Multi planar, multi sequence imaging was performed of the knee including: Triplane proton density fat-saturated images and T1-weighted imaging. No Gadolinium was given. IV Contrast: mL (none if empty) FINDINGS: Medial meniscus: Undersurface tear of the medial meniscus body which is displaced into the gutter slightly. There is vertical tear of the posterior horn also present. Medial femorotibial cartilage: Grade-III chondromalacia. Deep cartilage defect suggested of the m edial femoral condyle series 411 image 23 Medial collateral ligament: Intact Lateral meniscus: Vertical tear of the body of the lateral meniscus. Lateral femorotibial cartilage: Grade-II chondromalacia. Lateral collateral ligament complex: Intact Patellofemoral alignment: Normal Patellofemoral cartilage: Grade-III chondromalacia deep fissuring of the medial patellar facet. Extensor mechanism: Intact. Joint/bursal fluid: None. Muscles/tendons: A fabella is present. The patellar tendon, quadriceps tendon, IT band, pes anserinus tendons, semimembranosus tendon, popliteus tendon, and biceps femoris tendon are all within normal l imits. Bone marrow: Normal. Anterior cruciate ligament: Intact. Posterior cruciate ligament: Intact. Soft tissues: Unremarkable. IMPRESSION: 1. Medial meniscus body undersurface tear with medial displacement of the meniscal body and free edg e fraying. Vertical tear of the posterior horn of the medial meniscus. 2. Lateral meniscal body vertical tear. 3. ACL PCL MCL and LCL are intact. 4. Mild degeneration changes with deep cartilage defect of the medial femoral condyle. [facility], , 05/03/2024 10:41 AM
== END | disposition home or self-care (01) ==
LOC: RADMRIMAIN 09:44
PROVIDERS: ATTEND Emergency Medicine
DX: S83.92XA Sprain of unspecified site of left knee, initial encounter (principal); S83.242A Other tear of medial meniscus, current injury, left knee, initial encounter; M17.12 Unilateral primary osteoarthritis, left knee

== ENCOUNTER → 2024-05-15 | Outpatient (CLI) | payer MEDICAID ==
--- NOTE | 2024-05-15 12:50 | USB ---
Reason for Exam: Follow-up at short interval from prior study. Patient History: Menarche at age 13. First Full-Term at age 24. Hysterectomy at age 40. Patient used Hormonal Contraceptives for 6 years. Risk Values: Sindi 5 year model risk: 1.2%. NCI Lifetime model risk: 8.3%. Technique: Method: Targeted. Prior Study Comparison: 03/08/2022 Bilateral MG 3D screening mammo w/cad, Unknown. 10/12/2023 Bilateral MG 3D screening mammo w/cad, [facility]. 11/07/2023 Left MG 3D work up w/cad LT, [facility]. 11/07/2023 Left US breast workup limited LT, [facility]. Findings: The upper outer quadrant of the left breast, the axilla of the left breast and the retroareolar of the left breast were scanned. Targeted ultrasound redemonstrates a hypoechoic anechoic small lesion measuring 4 x 4 by 4 mm at 1:00 position 8 cm distance from nipple in the deeper tissue without vascularity likely reflecting small thin-walled cyst. This measures smaller in size versus prior. Left axilla shows a benign appearing subcentimeter lymph node. No suspicious new solid or cystic mass is identified. Overall Assessment: Benign, BI-RAD 2 Management: Screening Mammogram of both breasts in 6 months. Back on schedule. A clinical breast exam by your physician is recommended on an annual basis and results should be correlated with mammographic findings. This exam should not preclude additional follow-up of suspicious palpable abnormalities. Results were given to the patient verbally at the time of exam. [facility], , 05/15/2024 12:46 PM. Electronically signed and approved by: Jeffry Marlow M.D.
== END | disposition home or self-care (01) ==
LOC: RADUSWWP 12:21
PROVIDERS: ATTEND Family Medicine
DX: R92.8 Other abnormal and inconclusive findings on diagnostic imaging of breast (principal); Z92.0 Personal history of contraception

== ENCOUNTER → 2024-05-23 | Outpatient (CLI) | payer MEDICAID ==
[2024-05-23 15:20] LABS: Potassium 4.4 mmol/L (3.5-5.5)
[2024-05-23 15:21] LABS: Anion Gap 11.1 mmol/L (4.00-12.00); Carbon Dioxide 25.9 mmol/L (21.6-31.8)
[2024-05-23 16:04] LABS: Basophils # (A) 0.06 X 10*3/uL (0.00-0.10); Basophils % (A) 1.2 %; Eosinophils # (A) 0.07 X 10*3/uL (0.04-0.35); Eosinophils % (A) 1.4 %; HCT 42.7 % (37.2-46.3); HGB 13.6 g/dL (12.0-15.0); Lymphocytes % (A) 41.2 %; MCH 29.4 pg (27.0-32.0); MCHC 31.9 g/dL (32.0-37.0); MCV 92.4 FL (80.0-97.0); Mean Platelet Volume 9.8 FL (9.5-12.2); Monocytes # (A) 0.44 X 10*3/uL (0.20-1.00); Monocytes % (A) 8.6 %; NRBC Per 100 WBC 0 X 10*3/uL (0.00-0.01); Neutrophils # (A) 2.41 X 10*3/uL (1.80-7.70); Neutrophils % (A) 47.2 %; Platelet Count 374 X 10*3/uL (140-440); RBC 4.62 X 10*6/uL (4.10-5.20); RDW 12.2 % (11.5-14.5)
== END | disposition home or self-care (01) ==
LOC: LABPAT 11:12
PROVIDERS: ATTEND Family Medicine
DX: Z01.818 Encounter for other preprocedural examination (principal); M23.92 Unspecified internal derangement of left knee
CPT/HCPCS: 80051; 85025; 93005

== ENCOUNTER 2024-05-30 08:47 | Day surgery (SDC) | payer MEDICAID, OTHER ==
[2024-05-28 10:46] VITALS: BMI 29.8
--- NOTE | 2024-05-29 21:01 | HP ---
HISTORY AND PHYSICAL DATE OF SURGERY: 05/30/2024. HISTORY OF PRESENT ILLNESS: Maura Arnett is a 54-year-old patient seen with left knee pain consistent with meniscal tears. We discussed options regarding her treatment. She elected to proceed with left knee arthroscopy. Consent was obtained. PAST MEDICAL HISTORY: Afd-vlhmzng-oavmvmaix diabetes. PAST SURGICAL HISTORY: Hand surgery, herniorrhaphy, hysterectomy, knee arthroscopy, spine surgery. DAILY MEDICATIONS: 1. Metformin. 2. Wellbutrin. ALLERGIES: None. SOCIAL HISTORY: She denies current tobacco use. PHYSICAL EVALUATION OF THE LEFT KNEE: Range of motion is -1/2 to 110 degrees. Mild effusion. Tenderness, medial and lateral joint lines. Positive medial Reginald's. Positive lateral Reginald's. Ligaments are stable. Hip rotation is without pain. Distal neurovascular exam is intact. IMAGING STUDIES: Left knee radiographs revealed mild osteoarthritis. Left knee MRI revealed medial and lateral meniscal tears, osteochondral defect of the medial femoral condyle. IMPRESSION: 1. Internal derangement of left knee with medial and lateral meniscal tears. 2. Osteochondral defect, medial femoral condyle, left knee. 3. Bbb-yxsjsqm-dkfwoiwls diabetes. PLAN: Left knee arthroscopy with partial medial/lateral meniscectomy, microfracture, medial femoral condyle and debridement. MMODL / IJN: [id number] /
[~2024-05-30 08:47] MED LIST: MIDAZOLAM 2 MG/2 ML VIAL IV PRN
[2024-05-30 09:56] LABS: Glucose,Whole Blood 89 mg/dL (70-110)
[2024-05-30] MEDS: IV FLUID CONTINUATION 1,000 ML IV ONE (10:02)
[2024-05-30] MEDS: LACTATED RINGERS 1,000 ML IV SCH (10:03)
[2024-05-30] MEDS: DEXAMETHASONE SOD PHOSPHATE 4 MG/ML 1 ML VIAL IV ONE (10:11)
[2024-05-30] MEDS: ONDANSETRON 4 MG/2 ML VIAL IVP ONE (10:11)
[2024-05-30] MEDS: SCOPOLAMINE 1 MG/72 HR PATCH TRANSDERM ONE (10:12)
[2024-05-30] MEDS ORDERED: LIDOCAINE 1% INJ 10MG/ML (20 ML MDV) ONE (10:54)
[2024-05-30] MEDS ORDERED: PROPOFOL 10 MG/ML 20 ML VIAL IV ONE (10:54)
[2024-05-30] MEDS ORDERED: fentaNYL (PF) 50 MCG/ML 2 ML AMP ONE (10:54)
[2024-05-30] MEDS ORDERED: MIDAZOLAM 2 MG/2 ML VIAL ONE (10:54)
[2024-05-30] MEDS: BUPIVACAINE (PF) 0.25% 30 ML VIAL SQ ONE ×2 (11:14)
[2024-05-30 11:43] VITALS: TEMP 97.2
--- NOTE | 2024-05-30 11:46 | P.OP ---
Date of Procedure: 05/30/24 Preoperative Diagnosis: Internal derangement left knee Postoperative Diagnosis: 1. Tear medial lateral and meniscus left knee 2. Grade IV chondromalacia medial femoral condyle left knee 3. Reactive synovitis medial, lateral & compartments left knee 4. 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 Arthroscopic partial medial and lateral meniscectomy left knee 2. Arthroscopic microfracture medial femoral condyle left knee 3. Arthroscopic partial synovectomy medial, lateral and suprapatellar compartments left knee 4. Arthroscopic chondroplasty lateral femoral condyle left knee Anesthesia: ANSHULA, local Surgeon: Rey Vera Estimated Blood Loss (ml): 5 Pathology: none sent Condition: stable Disposition: PACU Indications for Procedure: 54-year-old patient seen with progressive left knee pain. After having treatment options discussed, she elected to proceed with arthroscopy. Operative Findings: See description of procedure Description of Procedure: Patient was taken to the operative suite. Patient underwent a general anesthetic by the department of anesthesia. Patient was given preoperative antibiotics. The left lower extremity was placed in a well-padded arthroscopic leg diego. The left leg was prepped and draped in the normal sterile orthopedic fashion. A lateral parapatellar and suprapatellar incision was made. Trochars were inserted. Arthroscopy was initiated. Suprapatellar pouch revealed diffuse thick reactive synovitis. The patellofemoral joint appeared to articulate congruently. There mild grade I chondromalacia without any significa nt osteochondral tears. The scope was guided into the medial gutter. No loose bodies or plica were identified. The scope was then guided into the medial compartment. A medial parapatellar incision was made. Trocar inserted followed by probe. There was a tear involving the posterior horn of the medial meniscus extending slightly into the mid body area. There were 3/4 chondromalacia changes of the medial femoral condyle with large osteochondral flap tears present. There was some thick reactive synovitis anteriorly. I performed a partial medial meniscectomy getting down to stable meniscal tissue. I performed a chondroplasty of the medial femoral condyle getting down to stable osteochondral tissue. I performed a partial synovectomy decompressing the thick reactive synovitis. I did note an area of grade IV chondromalacia/exposed bone along the weightbearing surface of the medial femoral condyle measuring just under a centimeter. I introduced a microfracture awl and I performed a microfracture to that area of exposed bone penetrating the bone with resultant bleeding at the microfracture site. The residual meniscus was probed and was found to be stable. The residual osteochondral surface appeared stable. There was good decompression of the synovitis. Scope and probe were then guided into the intercondylar notch. Cruciates were identified, probed and found to be stab le. The scope and probe were then guided into lateral compartment. There was a radial tear involving the mid body of the lateral meniscus. There was an area of grade II/III chondromalacia of the lateral femoral condyle with some osteochondral flap tears present. There was some thick reactive synovitis anteriorly. I performed a partial lateral meniscectomy getting down to stable meniscal tissue. I performed a chondroplasty of the lateral femoral condyle getting down to stable osteochondral tissue. I performed a partial synovectomy decompressing the reactive synovitis. The residual meniscus was probed and was found to be stable. The residual osteochondral surface appeared stable. There was good decompression of the synovitis. The scope was in guided back into the suprapatellar compartment. I introduced a motorized shaver into the suprapatellar compartment. I debrided some piecemeal fragments of meniscus that I encountered. I performed a partial synovectomy. The shaver was now removed. There appeared to be good decompression of the synovitis. I took 1 more look around the entire knee, no residual debris. Instruments were now removed from the joint. The joint was infiltrated with .25% Marcaine. Steri-Strips were applied to the portal sites. Sterile dressings were applied. The patient was placed into a MANUEL hose. No tourniquet was utilized. The patient was awakened, transferred to a bed and taken to recovery stable satisfactory condition.
[2024-05-30] MEDS: fentaNYL (PF) 50 MCG/ML 2 ML AMP IV PRN (11:51)
[2024-05-30 12:19] VITALS: RESP 16
[2024-05-30 12:52] VITALS: BP 119/76; PULSE 76
[2024-05-30] MEDS: HYDROcodone/APAP 5-325MG 1 EACH TAB PO STA (12:56)
== END 2024-05-30 13:32 | disposition home or self-care (01) ==
LOC: OR 08:47
PROVIDERS: ATTEND Orthopaedic Surgery
DX: M65.962 Unspecified synovitis and tenosynovitis, left lower leg (principal); S83.242A Other tear of medial meniscus, current injury, left knee, initial encounter; S83.282A Other tear of lateral meniscus, current injury, left knee, initial encounter; E11.9 Type 2 diabetes mellitus without complications; Z79.84 Long term (current) use of oral hypoglycemic drugs
CPT/HCPCS: 29879; 29880; J2250; J1100; J0690; J2405; J2003; J3010; J2704; J0665